=== PATIENT | male | born 1955 ===

== ENCOUNTER 2025-01-29 06:16 | Day surgery (SDC) | payer OTHER ==
[2025-01-29] MEDS ORDERED: MIDAZOLAM HCL 2 MG/2 ML VIAL IV ONE (09:30)
[2025-01-29] MEDS ORDERED: fentaNYL CITRATE 50 MCG/ML AMPUL IV PUSH ONE (09:30)
[2025-01-29] MEDS ORDERED: DIPHENHYDRAMINE HCL 50 MG/ML VIAL 1ML IV ONE (09:30)
== END 2025-01-29 10:50 | disposition home or self-care (01) ==
LOC: AMB-ENDOS 06:16
PROVIDERS: ATTEND Colon & Rectal Surgery
DX: D12.2 Benign neoplasm of ascending colon (principal); K57.30 Diverticulosis of large intestine without perforation or abscess without bleeding; Z86.0101 Personal history of adenomatous and serrated colon polyps; K58.9 Irritable bowel syndrome, unspecified